=== PATIENT | male | born 1945 | race Caucasian/White ===

== ENCOUNTER 2018-05-05 00:17 | Observation (INO) | payer MEDICARE, OTHER ==
[~2018-05-05] VITALS: Ht 172.7 cm; Wt 103.4 kg
[2018-05-05] VITALS (13 sets, daily range): BP systolic 128–159; BP diastolic 74–98
[~2018-05-05 00:17] MED LIST: ASPI-1471 PO; DILT120T PO; ESOM40CA42 PO; HYDR200T77 PO; LEVO-3 PO; PRED20TA6 PO; TAMS0.4C25 PO; WARF-1 PO
[2018-05-05] MEDS ORDERED: NORMOSOL R SOLN(*) 1000 ML BAG 1,000 ML IV PRN (06:00)
[2018-05-05] MEDS ORDERED: ceFAZolin(*) 2GM/D5W 50ML 50 ML IVPB ONE (06:00)
[2018-05-05] MEDS ORDERED: PREGABALIN 75 MG CAPSULE PO ONE (06:00)
[2018-05-05] MEDS ORDERED: LIDOCAINE/SOD BICARB 8.4% SYR ID ONE (06:00)
[2018-05-05] MEDS ORDERED: MIDAZOLAM 2 MG/2 ML VIAL IVP PRN (06:00)
[2018-05-05] MEDS ORDERED: ACETAMINOPHEN 500 MG TAB PO ONE (06:00)
[2018-05-05] MEDS ORDERED: ONDANSETRON 4 MG/2 ML VIAL ONE (06:18)
[2018-05-05] MEDS ORDERED: LIDOCAINE MPF 1% 5 ML VIAL ONE (06:18)
[2018-05-05] MEDS ORDERED: PROPOFOL EMUL(*) 10MG/ML 20 ML 20 ML ONE (06:18)
[2018-05-05] MEDS ORDERED: ROCURONIUM BROM 10 MG/ML 10 ML ONE (06:18)
[2018-05-05] MEDS ORDERED: METOCLOPRAMIDE 10 MG/2 ML SDV ONE (06:23)
[2018-05-05] MEDS ORDERED: DEXAMETHASONE SOD PHOS 10MG/ML ONE (06:23)
[2018-05-05] MEDS ORDERED: fentaNYL CITR 250 MCG/5 ML AMP ONE (06:24)
[2018-05-05] MEDS ORDERED: SUGAMMADEX SOD 200 MG/2 ML SDV ONE (08:13)
[2018-05-05] MEDS ORDERED: ROPIVACAINE 0.2% 20 ML VIAL ONE (08:27)
[2018-05-05] MEDS ORDERED: fentaNYL CITR 100 MCG/2 ML AMP ONE ×3 (08:42→09:05)
[2018-05-05] MEDS ORDERED: BISACODYL 10 MG SUPP PR PRN (09:40)
[2018-05-05] MEDS ORDERED: ACETAMINOPHEN 500 MG TAB PO PRN (09:40)
[2018-05-05] MEDS ORDERED: HYDROmorphone HCL 2 MG/ML SDV IVP PRN (09:40)
[2018-05-05] MEDS ORDERED: oxyCODONE HCL 5 MG CAP PO PRN (09:40)
[2018-05-05] MEDS ORDERED: ONDANSETRON 4 MG/2 ML VIAL IVP PRN (09:40)
[2018-05-05] MEDS ORDERED: FLUSH 10 ML SYR IVP PRN (09:40)
[2018-05-05] MEDS ORDERED: diphenhydrAMINE 25 MG CAP PO PRN (09:40)
[2018-05-05] MEDS ORDERED: MAGNESIUM HYDROXIDE* 30ML UDCP PO PRN (09:40)
[2018-05-05] MEDS ORDERED: BENZOCAINE/MENTHOL 1 EACH LOZG PO PRN (09:40)
[2018-05-05] MEDS ORDERED: LR(*) 1000 ML BAG 1,000 ML IV PRN (09:40)
[2018-05-05] MEDS ORDERED: ACETAMINOPHEN(*)1000 MG/100 ML 100 ML IVPB PRN (09:40)
--- NOTE | 2018-05-05 10:33 | OPERATIVE REPORT 1 ---
EVENT DATE: May 05, 2018 SURGEON: Washington Leiva M.D. ANESTHESIOLOGIST: Jean Arreola M.D. ANESTHESIA: General endotracheal. ALTERATION TAILOR: Erick Greenfield PA-C PREOPERATIVE DIAGNOSIS Lumbar second vertebra-lumbar third vertebra (L2-L3) and lumbar third vertebra- lumbar fourth vertebra (L3-L4) spinal stenosis with neurogenic claudication and left lower extremity radiculopathy. POSTOPERATIVE DIAGNOSIS Lumbar second vertebra-lumbar third vertebra (L2-L3) and lumbar third vertebra- lumbar fourth vertebra (L3-L4) spinal stenosis with neurogenic claudication and left lower extremity radiculopathy. PROCEDURE PERFORMED Lumbar second vertebra-lumbar fourth vertebra (L2-L4) laminectomy. IV FLUIDS 1700 mL. ESTIMATED BLOOD LOSS 125 mL. IMPLANTS USED None. . SPECIMENS None. DRAINS None. COMPLICATIONS None. DISPOSITION Post-anesthesia care unit. INDICATIONS FOR SURGERY Mr Knowles is a 72-year-old male with a long history of low back problems. He has had fusion at L4-L5 and L5-S1 in the past and had some improvement in his symptoms after those surgeries but then had gradual return of worsening, radiating pain, numbness and tingling bilaterally, left greater than right, down the anterior thighs and then down the posterior aspect of the calves and lateral calves. His physical examination was significant for extension only to neutral prior to pain occurring. He had weakness in the perineals on the left compared to the right but otherwise strength was intact. Sensation was intact in all dermatomes. Imaging studies showed postoperative changes at L4-L5 and L5 -S1 with severe spinal stenosis at the L3-L4 and moderate at L2-L3. Secondary to ongoing symptoms and failure to improve with physical therapy, medications, etc, he was offered and elected to undergo L2-L4 laminectomy. Prior to surgery, I explained in detail to the patient the possible risk of surgery. These risks included bleeding, infection, damage to surrounding structures, nerve root damage, persistent and or worsening pain, spinal fluid leak, meningitis, , blindness, sexual dysfunction, autonomic nervous system dysfunction and other unforeseen medical and surgical complications. An understanding that in general spinal surgery is more predictive at improving extremity discomfort than axial spine pain was stressed. DESCRIPTION OF PROCEDURE On the day of surgery, the patient was met in the preoperative hold area and all questions were answered. The operative site was identified and marked by myself. The patient was brought in good condition to the operating room and after succumbing to anesthesia was positioned in the prone position on a Burton table. All bony protuberances and soft tissues were well padded in the standard fashion. Care was taken to maintain appropriate perfusion pressure during anesthesia. Preoperative antibiotics were administered according to the appropriate timing schedule and at the conclusion of the procedure the sponge and needle counts were correct x2. A final time-out was undertaken by members of the operating team to confirm correct patient, correct levels and correct surgery. The patient was then prepped and draped in the standard sterile orthopedic fashion. Incision was made over the intended surgical levels. Sharp dissection was carried out through the soft tissues to the posterior elements of the spine and a lateral radiograph was obtained to confirm correct spinal levels. Soft tissues were elevated off the posterior elements in a subperiosteal manner and a self- retraining rectractor was placed. A Leksell rongeur and a ii4b blunt bone cutter were used to remove the spinous processes of L2 and L3. The lamina was thinned down the midline using a combination of a high-speed bur and Leksell rongeur. The canal was entered by undermining the superior insertion of the ligamentum flavum from the inferior aspect of the L2 lamina. The [place] elevator was used to separate any dural adhesions from surrounding bone and soft tissue prior to the use of the Kerrison punch. A midline decompression of L2-L3 and L3-L4 was performed with a #4 Kerrison. Bilateral lateral recess and foraminal decompressions were then performed with a combination of #3 and #4 Kerrison rongeurs. Care was taken to thoroughly decompress the traversing and exiting nerve roots at both levels. At the conclusion of the decompression, the [place] elevator was passed around the pedicles and out the foramina to ensure good foraminal decompression as well as good lateral recess decompression. Meticulous hemostasis was obtained and the wound was irrigated with copious sterile saline solution. The wound was then closed in layers using interrupted sutures for the deep fascia and inverted interrupted sutures for the subcutaneous tissue and running subcuticular skin stitch. Sponge and needle counts were correct x2. POSTOPERATIVE CARE PLAN Mr. Knowles will remain in the hospital overnight and will likely be discharged home postop day #1. He will follow up with me in two weeks' time for wound check and examination. GENO
[2018-05-05] MEDS ORDERED: LEVO137T23 PO (10:37)
[2018-05-05] MEDS ORDERED: ROSU5TAB3 PO (10:38)
--- NOTE | 2018-05-05 11:11 | Hospitalist Progress Note ---
Subjective Progress Notes Subjective Patient seen post-op. Reviewed PMHx (CAD, a-fib, , lichen planus, hypothyroidism, hyperlipidemia) and medications (diltiazem, warfarin, Crestor, aspirin, L-thyroxine). He reports doing well. No CP/SOB/N/V. Physical Exam Vital Signs Date Time Temp Pulse Resp B/P (MAP) Pulse Ox O2 Delivery O2 Flow Rate FiO2 05/05/18 09:56 97.7 63 12 147/90 (109) 92 Nasal Cannula 3.0 Intake and Output 05/06/18 07:00 Intake Total 2000 ml Output Total 0 ml Balance 2000 ml Intake IV Total 2000 ml Output Urine Total 0 ml General Appearance: Alert, Awake Cardiovascular: Regular Rate and Rhythm (with systolic murmur) Respiratory: Clear to Auscultation GI: Soft and Non-Tender Assessment and Plan Problems: (1) PAROXYSMAL ATRIAL FIBRILLATION Status: Chronic Assessment & Plan: He reports no apparent episodes (no symptoms) since his cardioversion. He has been on diltiazem and warfarin chronically. Will plan on restarting the diltiazem now and the warfarin when Dr. Leiva is comfortable with it. (2) CAD (coronary artery disease) Status: Chronic Assessment & Plan: He appears stable from this standpoint. He has had previous stent placement (several years ago) and is currently on aspirin daily. Will restart when Dr. Leiva is comfortable with it. (3) Hypothyroidism Status: Chronic Assessment & Plan: Will continue his levothyroxine. (4) Hyperlipidemia Status: Chronic Assessment & Plan: Continue his Crestor. (5) Lichen planus Status: Chronic Assessment & Plan: He reports doing well on the Plaquenil. Will plan on restart when Dr. Leiva is comfortable with it. DANIEL CAMPBELL MD May 05, 2018 11:11
[2018-05-05] MEDS: APAP/HYDROCODONE 325/5 TAB PO PRN ×3 (11:29→21:15)
--- NOTE | 2018-05-05 11:55 | RADIOLOGY IMAGING REPORT ---
FACILITY: [facility] [place] PATIENT NAME: Satish Knowles : 1945 MR: [id number] V: [id number] EXAM DATE: ORDERING PHYSICIAN: LEVAR OLSEN TECHNOLOGIST: Location: [facility] - [place] Patient: Satish Knowles : 1945 Visit/Account:[id number] Date of Sevice: 05/05/2018 Exam type: LUMBAR SPINE 1 VIEW History: L2-L4 DISC HERNIATION Comparison: None. Findings: A single prone intraoperative crosstable lateral view of lumbar spine was submitted. There is been p osterior lumbar interbody fusion of two lower lumbar vertebral bodies with pedicle screws and interve rtebral disc support cage. The exact numeration of the vertebral bodies is somewhat difficult. This may be at L3 and four with severe disc space narrowing at L5-S1. There suggestion of mild anterolis thesis of L4 with respect L5 and L3 with respect L4 if this numeration is correct. Surgical instrume nts and sponge markers project over the dorsal soft tissues lumbar spine on this intraoperative study IMPRESSION: 1. As above Report Dictated By: Laurita Dodson MD at 05/05/2018 11:48 AM Report E-Signed By: Laurita Dodson MD at 05/05/2018 11:51 AM WSN:[email or web address]
[2018-05-05] MEDS: DIAZEPAM 5 MG TAB PO PRN (15:41)
[2018-05-05] MEDS: ceFAZolin(*) 2GM/D5W 50ML 50 ML IVPB SCH (15:46)
[2018-05-05] MEDS ORDERED: ROSUVASTATIN CALCIUM 10 MG TAB PO SCH (21:00)
[2018-05-05] MEDS: DOCUSATE SODIUM 100 MG CAP PO SCH (21:15)
[2018-05-06 00:15] VITALS: BP 125/68
[2018-05-06] MEDS: ceFAZolin(*) 2GM/D5W 50ML 50 ML IVPB SCH ×2 (00:27→08:23)
[2018-05-06] MEDS: DIAZEPAM 5 MG TAB PO PRN (00:27)
[2018-05-06] MEDS: APAP/HYDROCODONE 325/5 TAB PO PRN (04:50)
[2018-05-06 04:51] VITALS: BP 140/75
[2018-05-06] MEDS ORDERED: LEVOTHYROXINE SOD 0.137 MG TAB PO SCH (06:00)
[2018-05-06] MEDS ORDERED: PANTOPRAZOLE SOD 40 MG TABEC PO SCH ×2 (06:00→09:00)
[2018-05-06] MEDS ORDERED: DOCU240C84 PO (07:36)
[2018-05-06] MEDS ORDERED: DIA5 PO (07:38)
[2018-05-06] MEDS ORDERED: LOR5/325 PO (07:38)
[2018-05-06] MEDS: DOCUSATE SODIUM 100 MG CAP PO SCH (08:25)
[2018-05-06 08:47] VITALS: BP 124/78
[2018-05-06] MEDS ORDERED: DILTIAZEM CD 120 MG CAPCR PO SCH (09:00)
[2018-05-06] MEDS ORDERED: TAMSULOSIN HCL 0.4 MG CAP PO SCH (09:00)
[2018-05-06 10:36] VITALS: Ht 172.7 cm; Wt 103.4 kg
--- NOTE | 2018-05-06 11:05 | Hospitalist Progress Note ---
Subjective Progress Notes Subjective He was admitted after spine surgery. He had no acute events overnight. Patient Complains of: Cardiovascular: No: Chest Pain Respiratory: No: Shortness of Breath Physical Exam Vital Signs Date Time Temp Pulse Resp B/P (MAP) Pulse Ox O2 Delivery O2 Flow Rate FiO2 05/06/18 09:55 90 Room Air 05/06/18 08:47 98.9 71 14 124/78 (93) 1.0 Intake and Output 05/07/18 01:00 Intake Total 400 ml Balance 400 ml Intake Oral 350 ml IV Total 50 ml General Appearance: Alert, Awake, No Acute Distress Neuro: No Gross deficits Cardiovascular: Regular Rate and Rhythm Respiratory: No Respiratory Distress, Clear to Auscultation GI: Soft and Non-Tender Psych: Alert & Oriented X3, Appropriate Mood & Affect Assessment and Plan Problems: (1) PAROXYSMAL ATRIAL FIBRILLATION Status: Chronic Assessment & Plan: He reports no apparent episodes (no symptoms) since his cardioversion. He has been on diltiazem and warfarin chronically. His diltiazem was restarted. Dr. Leiva approved restarting his warfarin today. (2) CAD (coronary artery disease) Status: Chronic Assessment & Plan: He appears stable from this standpoint. He has had previous stent placement (several years ago) and is currently on aspirin daily. (3) Hypothyroidism Status: Chronic Assessment & Plan: Will continue his levothyroxine. (4) Hyperlipidemia Status: Chronic Assessment & Plan: Continue his Crestor. (5) Lichen planus Status: Chronic Assessment & Plan: He reports doing well on the Plaquenil. Exam Sepsis Risk: No Definite Risk STEF [id number] May 06, 2018 11:05
== END 2018-05-06 10:52 | disposition home or self-care (01) ==
LOC: OR 00:17 → MED 09:55
PROVIDERS: ADMIT Orthopaedic Surgery; ATTEND Orthopaedic Surgery
DX: M48.062 Spinal stenosis, lumbar region with neurogenic claudication (principal); M54.16 Radiculopathy, lumbar region
CPT/HCPCS: 36415; 63030; 63035; 72020; 86850; 86900; 86901; 97161; A9270; G0378; J1100; J1170; J2001; J2250; J2405; J2704; J2765; J2795; J3010; J7120; J0690